=== PATIENT | male | born 1970 | race Asian ===

== ENCOUNTER 2017-04-02 02:25 | Emergency (ER) | payer OTHER ==
[~2017-04-02] VITALS: Ht 180.3 cm; Wt 77.1 kg
[2017-04-02 02:29] VITALS: Ht 180.3 cm; Wt 77.1 kg
[2017-04-02 03:22] VITALS: BP 125/87
== END 2017-04-02 03:22 | disposition home or self-care (01) ==
LOC: ED 02:25
DX: G56.32 Lesion of radial nerve, left upper limb (principal)